=== PATIENT | female | born 1955 | race Caucasian/White ===

== ENCOUNTER 2018-01-06 15:21 | Emergency (ER) | payer MEDICARE, BC ==
[2018-01-06] MEDS ORDERED: DIPH/PERTUSS(ACELL)/TETANUS VAC/PF 0.5 ML SYR (>=10YO) IM ONE ×2 (15:53→21:32)
--- NOTE | 2018-01-06 16:45 | RADIOLOGY REPORT (SQ) ---
EXAM DESCRIPTION: CT HEAD WITHOUT COMPLETED DATE/TIME: 01/06/2018 4:35 pm REASON FOR STUDY: head trauma COMPARISON: None. TECHNIQUE: Axial images acquired through the brain without intravenous contrast. Images reviewed wi th bone, brain and subdural windows. Additional sagittal and coronal reconstructions were generated. Images stored on PACS. All CT scanners at this facility use dose modulation, iterative reconstruction, and/or weight based d osing when appropriate to reduce radiation dose to as low as reasonably achievable (ALARA). [facility]: Dose Right [facility]: CareDose [facility]: Dose Right [facility]: Teradose 4D [facility]: NanoLumens RADIATION DOSE: CT Rad equipment meets quality standard of care and radiation dose reduction techniq ues were employed. CTDIvol: 53.2 mGy. DLP: 991 mGy-cm. mGy. LIMITATIONS: None. FINDINGS: VENTRICLES: Normal size and contour. CEREBRUM: No masses. No hemorrhage. No midline shift. No evidence for acute infarction. Normal gra y/white matter differentiation. No areas of low density in the white matter. CEREBELLUM: No masses. No hemorrhage. No alteration of density. No evidence for acute infarction. EXTRAAXIAL SPACES: No fluid collections. No masses. ORBITS AND GLOBE: No intra- or extraconal masses. Normal contour of globe without masses. CALVARIUM: No fracture. PARANASAL SINUSES: No fluid or mucosal thickening. SOFT TISSUES: Soft tissue laceration in the left side of the forehead. OTHER: No other significant finding. IMPRESSION: NORMAL BRAIN CT WITHOUT CONTRAST. SOFT TISSUE LACERATION IN THE LEFT SIDE OF THE FOREHEAD. NO RADIOPAQUE FOREIGN BODY. NO UNDERLYING FRACTURE. EVIDENCE OF ACUTE STROKE: NO. COMMENT: Quality ID # [id number]: Final reports with documentation of one or more dose reduction techniques (e.g., Automated exposure control, adjustment of the mA and/or kV according to patient size, use of iterative reconstruction technique) TECHNICAL DOCUMENTATION: JOB ID: [id number] [employer]- All Rights Reserved Reading location - IP/workstation name: [email or web address]
[2018-01-06] MEDS ORDERED: LIDOCAINE 1%/EPINEPHRINE INJ 20 ML VIAL ONE (16:59)
[2018-01-06] MEDS ORDERED: SODIUM BICARBONATE 8.4% INJ 50 MEQ/50 ML DISP.SYRIN ONE (16:59)
[2018-01-06] MEDS ORDERED: LIDOCAINE 1%/EPINEPHRINE INJ 20 ML VIAL INJ ONE (17:00)
[2018-01-06] MEDS ORDERED: SODIUM BICARBONATE 8.4% INJ 50 MEQ/50 ML DISP.SYRIN INJ ONE (17:03)
[2018-01-06] MEDS ORDERED: METHYLENE BLUE 50 MG/10 ML AMPULE ONE (17:24)
--- NOTE | 2018-01-06 22:13 | ER Document Report ---
ED General - General Chief Complaint: Facial Injury Stated Complaint: FACIAL LACERATION Time Seen by Provider: 01/06/18 15:53 Mode of Arrival: Medic Information source: Patient Notes: 62-year-old female presents today with a large laceration to the face after falling today. Patient was stepping over a low fence and caught her foot which caused her to fall forward and hit her head. She denies loss of consciousness. She did land right on her forehead and has an extensive laceration across the forehead with numbness to the face. TRAVEL OUTSIDE OF THE [place] IN LAST 30 DAYS: No - HPI Onset: Just prior to arrival Onset/Duration: Sudden Quality of pain: Dull Severity: Mild Pain Level: 1 Associated symptoms: denies: Chest pain, Fever, Shortness of breath Exacerbated by: Denies Relieved by: Denies Similar symptoms previously: No Recently seen / treated by doctor: No - Related Data Allergies/Adverse Reactions: No Known Allergies Allergy (Unverified 01/06/18 15:23) Past Medical History - General Information source: Patient - Social History Smoking Status: Never Smoker Cigarette use (# per day): No Chew tobacco use (# tins/day): No Frequency of alcohol use: None Drug Abuse: None Lives with: Family Family History: None Patient has suicidal ideation: No Patient has homicidal ideation: No - Medical History Medical History: Negative Renal/ Medical History: Denies: Hx Peritoneal Dialysis Surgical Hx: Negative Review of Systems - Review of Systems Constitutional: denies: Chills, Fever EENT: See HPI Cardiovascular: No symptoms reported Respiratory: No symptoms reported Gastrointestinal: No symptoms reported Genitourinary: No symptoms reported Female Genitourinary: No symptoms reported Musculoskeletal: No symptoms reported Skin: No symptoms reported Hematologic/Lymphatic: No symptoms reported Neurological/Psychological: No symptoms reported Physical Exam - Vital signs Vitals: Temp Pulse Resp BP Pulse Ox 97.7 F 97 18 179/85 H 95 01/06/18 15:27 01/06/18 15:27 01/06/18 15:27 01/06/18 15:27 01/06/18 15:27 Notes: Physical exam: GENERAL: [id number] female, alert and oriented 3, in no acute distress. HEAD: Laceration starting from the hairline in the mid forehead which moves to the left side of the forehead and becomes L-shaped crossing the eyebrow and extending below the eyebrow just before the upper eyelid. Patient has decreased sensation to the upper forehead. EYES: Pupils equal round and reactive to light, extraocular movements intact, sclera anicteric, conjunctiva are normal. ENT: TMs normal, nares patent, oropharynx clear without exudates. Moist mucous membranes. NECK: Normal range of motion, supple without obvious mass LUNGS: Breath sounds clear to auscultation bilaterally and equal. No wheezes rales or rhonchi. HEART: Regular rate and rhythm without murmurs, rubs or gallops. ABDOMEN: Soft, normoactive bowel sounds. No tenderness to palpation. No guarding, no rebound. No masses appreciated. EXTREMITIES: Normal range of motion, no pitting or edema. No clubbing or cyanosis. NEUROLOGICAL: Decreased sensation to the upper forehead as noted PSYCH: Normal mood, normal affect. SKIN: Warm, Dry, normal turgor, no rashes or lesions noted. Course - Re-evaluation Re-evalutation: 01/07/18 00:28 She was given tetanus shot. Wound was irrigated CT of the head shows no skull fracture or intracranial pathology. Dr. Valarie jordan plastic surgery was called and he came in and close the wound. Patient will follow up with Dr. Joshua in his office. She will be discharged with Keflex and pain medicine. - Vital Signs Vital signs: Temp Pulse Resp BP Pulse Ox 98.4 F 106 H 16 142/63 H 95 01/06/18 22:21 01/06/18 22:21 01/06/18 22:21 01/06/18 22:21 01/06/18 22:21 Discharge - Discharge Clinical Impression: Face laceration, Concussion Condition: Stable Disposition: HOME, SELF-CARE Instructions: Tetanus Immunization Given ([facility]) Additional Instructions: Follow-up with Dr. Joshua this week as planned. Take the antibiotics as prescribed. Take the Percocet as needed for pain. The pain medicine you're taking prescribed as a narcotic. There are several important things you should know about this medicine: 1. This medicine contains Tylenol: It is important that you do not take Tylenol (or acetaminophen) while on this medicine. Tylenol is metabolized by the liver and taking too much Tylenol (acetaminophen) can lay to liver damage and even liver failure. 2. Taking narcotics for too long can lead to physical and mental dependence. Take this medicine only if really needed and in the lowest quantity to achieve pain relief. 3. Do not drink alcohol while on this medicine. Alcohol interacts with narcotics and the combination can be dangerous. 4. Do not drive or operate machinery while on this medicine. 5. Narcotics do cause constipation, so drink plenty of fluids and daily stool softeners. Return to the emergency room for worsening pain, headache, fever (temperature greater than 100.5) or any concerns or getting worse. Prescriptions: Cephalexin Monohydrate [Keflex 500 mg Capsule] 500 mg PO Q6H 5 Days capsule Oxycodone HCl/Acetaminophen [Percocet 5-325 mg Tablet] 1 - 2 tab PO ASDIR PRN # 25 tablet PRN Reason: Referrals: KRISTEN JOSHUA MD [ACTIVE STAFF] - Follow up in 3-5 days
[2018-01-06 22:23] VITALS: BP 142/63
--- NOTE | 2018-01-07 03:20 | CONSULTATION REPORT E ---
Consultation Report NAME: PHUC MARTI : 1955 AGE: 62Y DATE: TO: KRISTEN JOSHUA JR., M.D. FROM: KAR CORREA M.D. Requesting Physician REASON FOR CONSULTATION: This patient is a 62-year-old female for whom I was consulted because of a complex injury to her forehead. CHIEF COMPLAINT: The patient has a chief complaint of tripping and falling with a complex avulsive injury of her forehead area, which includes her eyebrow and her upper lid. PAST MEDICAL HISTORY: Significant for bipolar disorder. The patient does have some local allergies. MEDICATIONS: The patient takes: 1. Lipitor. 2. Zyprexa. 3. Zoloft. ALLERGIES: No known drug allergies. REVIEW OF SYSTEMS: Noncontributory. PHYSICAL EXAMINATION: This patient has a very complex injury. This is an avulsive injury that extends into the hairline all the way down the forehead off the midline onto the left side, going through the eyebrow and extending onto the upper lid, with another branch of the avulsion extending from the forehead through the eyebrow and down onto the upper eyelid. ASSESSMENT: This is a very complex injury for which I was consulted. PLAN: It was reported by the ER doctor that the patient's CAT scan was negative and there were no fractures of the bone. The patient was given full instructions to keep the head elevated with any activities, watch for any signs of infection, no bending or straining, and expect that she will have some swelling of her upper lid and lower lid and onto the cheek. She understands all our directives. If there is any problem, to contact me. The ER physician wrote for Keflex antibiotic and also wrote for pain medication. The patient will call the office Sunday morning to get scheduled for Sunday or for a followup. If there are any problems, she will contact us sooner and come in sooner. DICTATING PHYSICIAN: KRISTEN JOSHUA JR., M.D. [id number] PHY#: [id number] ID: [id number] JOB#: [id number] ACCT: [id number] cc:KRISTEN JOSHUA JR., M.D. >
--- NOTE | 2018-01-07 05:26 | OPERATIVE REPORT E ---
Operative Report NAME: PHUC MARTI : 1955 AGE: 62Y DATE OF SURGERY: 01/06/18 ROOM: PREOPERATIVE DIAGNOSIS: COMPLEX AVULSIVE INJURY THAT EXTENDS FROM THE PATIENT'S HAIRLINE JUST OFF THE MIDLINE AND EXTENDS ALL THE WAY DOWN VERTICALLY ALONG THE FOREHEAD UNTIL IT GETS TO A Y-TYPE OF AVULSIVE PATTERN, WITH ONE WOUND THAT EXTENDS DIAGONALLY ACROSS THE EYEBROW TO THE UPPER LID AND THE SECOND COMPONENT THAT EXTENDS [id number] THE EYEBROW AND EXTENDING ONTO THE UPPER LID. POSTOPERATIVE DIAGNOSIS: COMPLEX INJURY OF THE FOREHEAD, EYEBROW, AND UPPER LID. OPERATION: Exploration of the left of the midline forehead avulsion injury with debridement, irrigation, re-advancement, repair of the supratrochlear nerve and supraorbital nerve with reconstruction of this complex injury, with re-advancement of the avulsive flap in order to maintain a tension-free closure and give her the best contour. SURGEON: KRISTEN JOSHUA JR., M.D. ANESTHESIA: 1% lidocaine with epinephrine and bicarbonate for anesthetic/hemostatic effects. ESTIMATED BLOOD LOSS: About 8 mL. COMPLICATIONS: The patient tolerated well. No complications. PROCEDURE AND FINDINGS IN DETAIL: The patient was lying on the table on the ER stretcher. She was prepped with Betadine solution and draped in a sterile aseptic manner. The patient had outline made along the margins of the brow in order to try to realign it as best as possible. The triangular avulsive injury went through the brow both medially in the area of the supratrochlear and laterally going across the area of the supraorbital nerves. The patient did have anesthesia of the forehead and into the scalp area. The flap that was injured was an avulsive flap. It tore the skin and down into the areolar tissue of the cranium and the forehead. After we explored the wound it was noted that this was an avulsed flap which had extended laterally. There was a fair amount of undermining. There was also noted that some of the edges needed a little bit of debridement in order to minimize the amount of tension on the vertical scar, which was in a bad direction in terms of the relaxed skin tension lines. We had to re-advance the flap in order to give a tension-free closure so we could minimize the scar. The first step after our exploration and after coming up with a plan in order to reconstruct this was to irrigate this with a Betadine and saline solution with a 25-gauge needle and a 10 mL syringe. We thoroughly irrigated the whole area, and after this we got hemostasis with the bipolar throughout the area. Once we got good hemostasis, using loupe magnification we knew that the patient had problems with decreased sensitivity of the forehead and of the scalp, so we decided to explore for the supratrochlear and supraorbital nerves. We were able to find small branches of these nerves as they progressed superiorly along the forehead. We went ahead and attempted to repair these using 8-0 Prolene sutures with 3-1/2 power magnification, and we found both the proximal and distal ends and did an epineural coaptation of the nerves with the 8-0 nylon sutures so that we could have them in close proximity together with the ends closed together so that the patient may have a better chance of developing sensitivity and decrease the chance of neuroma formation. Again, with magnification 8-0 Prolene sutures were used to reapproximate the supratrochlear and the supraorbital nerves. After we completed this, we had maintained tension on the advancement flap, which we had advanced prior to the reconstruction. We went ahead and spread along the areolar plane and dissected the flap further so that it was freed up enough that it was easily able to meet the midline. The flap was foreshortened because of the injury and the time for the closure, and also after debriding edges this made this flap a little bit shorter so, therefore, we had to make up for that loss of tissue volume to allow for a more tension-free closure by creating an advancement flap that would slide this flap into the area so we could have a more tension-free repair and less spreading of the scar. After we did that, then we did the nerve repairs as we described above, and after we completed this we then went ahead and worked on the alignment. We used a marking pen again earlier before we anesthetized with the 1% lidocaine with epinephrine and bicarbonate to outline the area of the suprabrow and infrabrow region along the 2 lacerations that had extended into the brow medially and centrally. We then went ahead and using 5-0 Vicryl, after we got good hemostasis, went ahead and repaired the flap into its new position in the area where there was the Y-type of avulsion. This avulsed area was now sutured to the flaps that we allowed advancement in more of a V- to Y-type of reconstruction. The flap was advanced into the area after we had a tension-free flap so that it would be able to be reapproximated without undue amount of pressure to cause spreading of the scar. 5-0 Vicryls were placed throughout the avulsed area, reapproximating the subcutaneous and deep dermis. The orbicularis oculi muscle also had 5-0 Prolene suture placed and the lateral corrugators were also sutured with 5-0 Prolene to reapproximate these muscles. Once all the subcutaneous tissue and the muscles and the nerves were all repaired, this now gave us a nice contour. Again, this was a Y-type of avulsion and we made a V-Y type of reconstruction in order to give her the best effect. There had been some tissue loss that we noted because the flap had irregular areas of thinness compared to some of the other areas. So once the flap was tacked into place, we then went ahead and then began the closure of the skin. We used 5-0 PDS, with knots being tied on the outside, running one along the whole vertical forehead area down through the brown and up onto the eyelid and then the other was ran diagonally from the forehead through the brow and onto the eyelid. Knots were being tied on the outside. After this, we then applied supporting stitches of 6-0 Prolene through the repair vertically as well as on the eyebrow area and onto the eyelid. After we completed this, we had a good closure. Throughout the case, the bipolar was used for hemostasis. There were no signs of any bleeding. The wound was washed with Betadine at the time that we were going to place our subcuticular stitch. After we cleaned this with the Betadine, we had a nice good bacterial-free area that hopefully will not develop any kind of infection. Once the closure was completed, we applied tincture of benzoin and Steri-Strips and then we went ahead and applied 4 x 4's and a 2-inch Chris wrap in order to get the flap to adhere to the base and to minimize bleeding under the flap. The patient tolerated all this well. There were no complications. DICTATING PHYSICIAN: KRISTEN JOSHUA JR., M.D. [id number] PHY#: [id number] ID: [id number] JOB#: [id number] ACCT: [id number] cc:KRISTEN JOSHUA JR., M.D. >
== END 2018-01-06 22:20 | disposition home or self-care (01) ==
LOC: ER 15:21
DX: S06.0X9A Concussion with loss of consciousness of unspecified duration, initial encounter (principal); S01.81XA Laceration without foreign body of other part of head, initial encounter; W01.0XXA Fall on same level from slipping, tripping and stumbling without subsequent striking against object, initial encounter; R20.0 Anesthesia of skin; Z23 Encounter for immunization
CPT/HCPCS: 99284; 90471; 70450; 90715; 14040; J3490 ×2; Q9968